=== PATIENT | female | born 1980 | race Caucasian/White ===

== ENCOUNTER 2018-01-14 17:04 | Emergency (ER) | payer OTHER ==
[~2018-01-14] VITALS: Ht 157.5 cm; Wt 63.5 kg
[2018-01-14 17:30] VITALS: Ht 157.5 cm; Wt 63.5 kg
[2018-01-14 18:16] VITALS: BP 114/67
== END 2018-01-14 18:16 | disposition home or self-care (01) ==
LOC: ED 17:04
DX: G89.29 Other chronic pain (principal); M54.5 Low back pain; Z76.0 Encounter for issue of repeat prescription; Z87.81 Personal history of (healed) traumatic fracture